=== PATIENT | male | born 1975 | race Two or more races ===

== ENCOUNTER 2024-06-13 12:56 | Emergency (ER) | payer BC, SELFPAY ==
[2024-06-13 13:00] VITALS: BP 173/106
[2024-06-13 13:03] LABS: Glucose - Point of Care > 600 mg/dl (70-99)
[2024-06-13 13:07] VITALS: BP 152/99
--- NOTE | 2024-06-13 13:09 | ED.GENMED ---
History of Present Illness
General
Chief Complaint: Blood Sugar Problem
Time Seen by Provider: 06/13/24 13:08
History of Present Illness
History of Present Illness:
TIME OF INITIAL ENCOUNTER: 1:15 PM
HPI: I reviewed: Note from Corazon Escobar indicating the patient presented to their office with increased urinary frequency, leg cramps, increased thirst and Accu-Chek was 598 and he had ketones in the urine. He states that he was in [place]
eating a lot of sweets at that time and still has yet to adjust to the time change and wonders if this is a contributing factor. Other than some resolved sore throat, he has no infectious symptoms.
EXAM:
GENERAL: Well appearing in no distress, elevated BMI
HEENT: Moist oral mucosa
CARDIOVASCULAR: No murmurs, normal heart rate, regular rhythm, No chest wall tenderness
PULMONARY: No respiratory distress, breath sounds are clear and equal
ABDOMEN: Soft with no peritoneal signs, no tenderness
NEUROLOGIC: Excellent strength all extremities, no coordination deficits
PSYCHIATRIC: Appropriate mental status, normal insight and judgement
EXTREMITIES: Nontender, no edema, moves all extremities equally
SKIN: No rash, no lesions
NUMBER AND COMPLEXITY OF PROBLEMS ADDRESSED AT THE ENCOUNTER
� Chronic conditions affecting care: High cholesterol, does not have history of high blood pressure
� Acute Exacerbation and/or Progression of Chronic Illness: This is an acute problem
� Differential Diagnosis includes: New onset diabetes, DKA, rhabdomyolysis, dehydration, hypertensive urgency, YOUSIF
AMOUNT AND/OR COMPLEXITY OF DATA TO BE REVIEWED AND ANALYZED
� I performed an independent evaluation of and my interpretation is:
EKG:
CT:
X-rays:
Laboratory Studies: CBC normal, venous blood gas shows a pH of 7.33, creatinine 1.3, CK 255
Other:
� Review of other/old records: The patient had a colonoscopy in 2020
� Clinical information was obtained by an independent historian: None needed
� Prescriptions/Medications Considered but not given: Considered additional agents such as glipizide however PMD gave recommendations as noted below
� Further testing considered but not performed:
RISK OF COMPLICATIONS AND/OR MORBIDITY OR MORTALITY OF PATIENT MANAGEMENT
� Social determinants of health affecting care: Lives at home, recently traveled to and from [place]
� Discussion with other providers: Discussed case with Dr. Norton and I also discussed with Dr. Escobar
� Escalation of care including admission/observation vs risk of discharge considered: Initial fingerstick was greater than 600. He was started on IV fluids. Overall, he is well-appearing.
ANY OTHER UPDATES:
3:00PM Dr. Norton agrees with outpatient management as the patient has virtually no symptoms currently. PMD recommended metformin 1000 mg twice daily which I have ordered. I also gave a paper prescription for glucometer with testing strips
and lancets.
Phy Exam
Physical Exam
Physical Exam:
See HPI
Course
Orders/Labs/Results
Orders:
Orders
06/13/24 13:08
0.9% Sodium Chloride 1000 ml [Nss] 1,000 ml IV BOLUS
06/13/24 13:14
Acetone [B-Hydroxybutyrate] Urgent
Complete Blood Count/With Diff Urgent
Comprehensive Metabolic Panel Urgent
Hemoglobin A1c [Glycohemoglobin (HgbA1c)] Urgent
Magnesium Urgent
Phosphorus Urgent
Total CK [Creatine Phosphokinase] Urgent
Venous Blood Gas Urgent
%Oxygen/Room Air: ra
06/13/24 13:53
Insulin Human Regular [Novolin R] 10 units IV NOW STA
Abnormal Lab Results
06/13/24 06/13/24 06/13/24
13:01 13:14 14:43
VBG pCO2 55 H mmHg
(35-48)
VBG HCO3 29.0 H mmol/L
(22-27)
Sodium 133 L mmol/L
(135-145)
Chloride 93 L mmol/L
(98-107)
Glucose 667 H* mg/dl
(70-99)
Hemoglobin A1c 12.0 H %
(4.0-5.6)
Creatine Kinase 255 H U/L
(55-170)
POC Glucose > 600 H* mg/dl 306 H mg/dl
(70-99) (70-99)
06/13/24 13:14
06/13/24 13:14
Vital Signs
Initial and Last Documented VS:
Initial Vital Signs
Temp Pulse Resp BP Pulse Ox
97.8 F 99 18 173/106 100
06/13/24 13:00 06/13/24 13:00 06/13/24 13:00 06/13/24 13:00 06/13/24 13:00
Last Documented Vital Signs
Temp Pulse Resp BP Pulse Ox
97.8 F 94 24 144/95 98
06/13/24 13:00 06/13/24 14:30 06/13/24 14:45 06/13/24 14:04 06/13/24 14:07
*Critical Care Note
Total Time (30-74mins, 75-104mins- exclusive of procedures): 40min
comment:
The patient's blood sugar is markedly elevated at over 600. Fortunately, he is not in DKA. He was given aggressive IV fluids initially and was treated emergently with 10 units of IV insulin. Repeat blood sugar markedly improved. He was closely
monitored throughout his stay in the emergency department.
ED Attending Note
-
Portions of this chart may have been created with voice recognition software.� Occasional wrong word or��sound alike� substitutions may have occurred due to the inherent limitations of voice recognition software.
Discharge Plan
Departure
Patient Disposition: Home (Routine Discharge)
Date of Disposition: 06/13/24
Time of Disposition: 15:15
Patient with high blood pressure during this ER visit?: Yes
Discharge Problem:
Diabetes
Instructions: Type 2 Diabetes (DC), BLOOD PRESSURE
Prescriptions:
New
metformin 1,000 mg tablet
1,000 mg PO BID Qty: 60 0RF
No Action
guaifenesin 100 mg/5 mL Liquid
200 mg PO Q4HPRN PRN (Reason: sore throat)
coenzyme Q10 [CoQ-10] 100 mg Capsule
100 mg PO DAILY
red yeast rice 600 mg Capsule
600 mg PO DAILY
Referrals:
UNKNOWN - PT DOES,NOT KNOW [Family Provider] -
Activity Restrictions/Additional Instructions:
Your A1c is 12.0�this is very high. You are not in diabetic ketoacidosis. I briefly spoke to a geological manager and then I also spoke to Dr. Escobar who recommends 1000 mg of metformin twice daily. It is important for you to check your blood
sugars before each meal and at nighttime.
Interventions
Interventions:
*Risk Screen - Suicide Last Done: 06/13/24 13:00
*General Assessment Last Done: 06/13/24 13:00
*Neglect/Abuse Screening Last Done: 06/13/24 13:00
*ED COVID-19 Vaccine History Last Done: 06/13/24 13:17
ED- Neurological Assessment Last Done: 06/13/24 13:19
Discharge Date and Time
Print Language: ZAMBIAN
[2024-06-13 13:17] VITALS: BMI 31.3
[2024-06-13] MEDS: NSS 1000 IV (13:17)
[2024-06-13 13:31] LABS: Venous Blood Gas B.E. 1.5 mmol/L (-4 to +4); Venous Blood Gas O2 Sat % 58.5 %; Venous Blood Gas pCO2 55 mmHg (35-48); Venous Blood Gas pH 7.33 (7.32-7.43); Venous Blood Gas pO2 30 mmHg (30-50)
[2024-06-13 13:32] LABS: % Basophils 0.5 % (0-2); % Eosinophils 1.3 % (0-6); % Immature Granulocytes 0.4 % (0-0.5); % Lymphocytes 40.7 % (20.5-51.1); % Monocytes 6.6 % (1.7-9.3); % Neutrophils 50.5 % (42.2-75.2); Absolute Eosinophils 0.1 10^3/uL (0-0.7); Absolute Lymphocytes 3.4 10^3/uL (1.2-3.4); Absolute Monocytes 0.6 10^3/uL (0.1-0.6); Absolute Neutrophils 4.2 10^3/uL (1.4-6.5); Hematocrit 46.8 % (39.0-52.0); Hemoglobin 16.1 g/dL (13.0-18.0); Mean Corp Hgb Conc. 34.4 g/dL (33.0-37.0); Mean Corpuscular Hgb 29.3 pg (27.0-31.0); Mean Corpuscular Volume 85.1 fL (80.0-94.0); Mean Platelet Volume 10.1 fL (7.4-10.4); Nucleated Red Blood Cells % 0.2 % (-); Platelet Count 274 10^3/uL (130-400); White Blood Cell Count 8.3 10^3/uL (4.8-10.8)
[2024-06-13 13:51] LABS: ALT (SGPT) 47 U/L (0-50); AST (SGOT) 35 U/L (17-59); Albumin 4.9 g/dl (3.5-5.0); Alkaline Phosphatase 95 U/L (38-126); Blood Urea Nitrogen 18 mg/dl (9-20); Calcium 9.6 mg/dl (8.4-10.2); Carbon Dioxide 26 mmol/L (22-30); Chloride 93 mmol/L (98-107); Creatine Phosphokinase 255 U/L (55-170); Estimated Creatinine Clearance 74 ml/min; Phosphorus 4.3 mg/dl (2.5-4.5); Potassium 4.6 mmol/L (3.5-5.1); Sodium 133 mmol/L (135-145); Total Bilirubin 0.6 mg/dl (0.2-1.3); Total Protein 7.9 g/dl (6.3-8.2); eGFR > 60.00
[2024-06-13 13:56] LABS: B-Hydroxybutyrate 0.19 mmol/L (0.02-0.27)
[2024-06-13] MEDS: NOVOLIN R 10 UNITS IV (14:01)
[2024-06-13 14:04] VITALS: BP 144/95
[2024-06-13 14:08] LABS: Glucose 667 mg/dl (70-99)
[2024-06-13 14:44] LABS: Glucose - Point of Care 306 mg/dl (70-99)
[2024-06-13 15:18] VITALS: BP 148/98
== END 2024-06-13 15:25 | disposition home or self-care (01) ==
LOC: EMR 12:56
PROVIDERS: EMERGENCY PHYSICIAN Emergency Medicine
DX: E11.65 Type 2 diabetes mellitus with hyperglycemia (principal); R03.0 Elevated blood-pressure reading, without diagnosis of hypertension
CPT/HCPCS: 99291; 96374; 80053; 82010; 82550; 82805; 82962; 83036; 83735; 84100; 85025

== ENCOUNTER → 2024-08-13 09:55 | Outpatient (REF) | payer BC, SELFPAY ==
--- NOTE | 2024-08-03 15:06 | PN.DIAED02 ---
Referral
DSME Class Series Code: [id number]
Referred For: Diabetes Self-Management Training, Medical Nutrition Therapy, Self-Blood Glucose Monitoring, Long-Term Complication Instruction, Accute Complication Instruction, Continuous Glucose Monitoring, Medication management, Care Coordination,
Disease Management
PHI Release Authorization Form Signed: Yes
Demographic
(1) Type 2 diabetes mellitus without complications
Status: Acute Onset Date: 06/13/24
Qualifiers:
Diabetes mellitus prison insulin use: without prison use Qualified Code(s): E11.9 - Type 2 diabetes mellitus without complications
Code(s): E11.9 - Type 2 diabetes mellitus without complications
Patient's primary language-: Kinyarwanda
Education: College degree
Occupation: Professional
Hours Worked/Week: > 40
- Social
Primary Support Person: Self
Primary Care Takers: Self
Living Arrangements: Self & spouse, Family
- Learning Methods
Preferred Method: Video
Barriers to Learning: None
Glycemic Control
- Blood Glucose Monitoring Assessment
Date: 06/13/24 (600 mg/dL)
Blood glucose monitoring at home: Yes ([employer] nayeli 3 )
Monitor Brands: Accu-Chek (Accu-Chek guide)
Time: Other (as needed to verify glucose sensor)
Patient instructed on Use and Limitation: No
- Hyperglycemia Assessment
Experiences Hyperglycemia: Yes (increased urination prior to diagnosis)
Hitory of DKA/HHS: No
- Hypoglycemia Assessment
Patient carries glucose source: No
- Blood Glucose Monitoring Results
Source: self-report
- Hemoglobin A1c
Date: 06/13/24
A1C Percentage (%): 12
Medical History of Diabetes
Family Diabetes History: Unknown
Previous Diabetes Education: No
Previous visit with Dietitian: No
Complications/Comorbidity/Specialist: Hyperlipidemia (borderline: started on a statin on diagnosis of diabetes)
Current Home Medication
- Insulin Management
Patient adjusts own insulin dosages: No (Metformin 500 mg daily)
Measures
- Anthropometrics
Height: 5 ft 7 in
Actual Weight: 188 lb 6.4 oz
- Blood Pressure / Pulse
Blood pressure: 130/85 (recc to reach out to addiction medicine physician)
Pulse: 90
- Diabetes Management
Medical Management for Diabetes: Complete physical exam (10/19/23), Dental exam (12/19/23), Dilated eye exam (02/08/24)
Self-Care
- Tobacco Usage
Do you now, or have you ever smoked?: Quit more than 1 year ago
- Alcohol & Drugs Usage
Drinks Alcohol: No
- Meals & Dining
Meals & Dining: Patient skips meals: No, Food Intolerance / Allergy: Yes (lactose), Cultural / Catholic Dietary Needs: No
Primary Food Miner: Self
Primary Quarry Manager: Self
- Physical Activity
Physical Limitation: No
Patient participates in physical Activity: Yes
Activity Types: walking
Duration: > 50 minutes
Frequency: 3-5x per week
- Self Foot-Care
Foot Problems: None
- Patient-Self Assessment
Diabetes Knowledge: Good
Feelings About Diabetes: Adaptation
General Health: Good
Importance of Health: Extremely
Stress Level: Medium
Diabetes Interferes With:: Nothing
Barriers to Diabetes Management: Nothing
Depression Survey Score: 2
- Diabetes Identification
Carries Diabetes Identification: No
Care Plan
- Education Needs
Patient Education Needs: Diabetes disease process, Chronic complications, Acute complications, Medication, Monitoring, Physical activity, Psychosocial Adjustment, Nutritional management, Goal setting & problem solving
Recommended Diabetes Training Program based on assessment: Outpatient Diabetes Education Program
- Plan of Care
Plan of Care:
Gianni was recently diagnosed in 06/24 with type 2 diabetes after having a routine physical that noted glucose in his urine and an elevated bg level in the office. He was sent to the ER and given 1 dose of rapid acting insulin, given an Accu-check
guide and started on Metformin 1,000 mg BID. He obtained the nayeli 3 glucose sensor and since has decreased his weight by 20 lbs through diet, exercise and taking the Metformin. His dose of Metformin was decreased by his PCP last week to 500 mg
daily. Gianni was encouraged to reach out to the office with any questions or concerns prior to the DSME session starting.
--- NOTE | 2024-08-03 15:21 | PN.DIAED04 ---
Education Record
- Education Record
Class Attended: Other (Initial Assessment DSME Course)
DSME Class Series Code: [id number]
Instructor: Nurse Practitioner (TING Klein)
Pre-Program Knowledge: Demonstrates competency
Pre-Test Score (%): 87.5
Goals
- Goal 1
Being Active: Exercise more often (increase intensity of 60 minute walks)
Goals To Be Evaluated: Exercise more often
- Goal 2
Healthy Eating: Patient will be able to plan a meal, Make better food choices
Goals To Be Evaluated: Be able to plan a meal. Make better food choices
- Goal 3
Monitoring: Monitor more often (review glucose sensor for patterns and increased time in range)
Goals To Be Evaluated: Monitor more often
--- NOTE | 2024-08-14 15:01 | PN.DIAED14 ---
This is to notify you that your patient with diabetes, PATIENCE FERRARA ( 1975), has enrolled in our diabetes self-management classes that are being held at [facility].
These classes will include an introduction to diabetes, diet, medication, exercise and prevention of complications. At the end of our class series, you will receive a report of your patient's participation and progress for your records.
Please contact me at the Diabetes [facility], , if there is any particular information regarding your patient that might be helpful to me.
Sincerely,
Khang MAGUIRE-, [facility]
--- NOTE | 2024-08-14 15:02 | PN.DIAED04 ---
Addendum entered and electronically signed by Zabrina Victor 08/15/24 12:00:
Outpatient Diabetes Education Program:
Class 1 (120 minutes)
Describe the diabetes disease process and treatment options
Diabetes management
Develop personal strategies to promote health and behavior change
Integrate psychosocial adjustment for daily living
Monitor blood glucose and other parameters. Interpret and use the results for self-management decision making
Prevent, detect, and treat acute complications
Original Note:
Education Record
- Education Record
Class Attended: Class 1
DSME Class Series Code: [id number]
Instructor: Nurse Practitioner (TING Klein)
Class Length (mins): 120
Post-Class 1 Test Score (%): 100
== END ==
LOC: DES 09:55
PROVIDERS: ATTENDING PHYSICIAN Emergency Medicine
DX: E11.65 Type 2 diabetes mellitus with hyperglycemia (principal)
CPT/HCPCS: 99078

== ENCOUNTER → 2024-08-20 13:58 | Outpatient (REF) | payer BC, SELFPAY | LOC: DES 13:58 | PROVIDERS: ATTENDING PHYSICIAN Emergency Medicine | DX: E11.65 Type 2 diabetes mellitus with hyperglycemia (principal) | CPT/HCPCS: 99078 ==

== ENCOUNTER → 2024-08-27 11:20 | Outpatient (REF) | payer BC, SELFPAY | LOC: DES 11:20 | PROVIDERS: ATTENDING PHYSICIAN Emergency Medicine | DX: E11.65 Type 2 diabetes mellitus with hyperglycemia (principal) | CPT/HCPCS: 99078 ==

== ENCOUNTER → 2024-09-03 08:38 | Outpatient (REF) | payer BC, SELFPAY ==
--- NOTE | 2024-09-04 10:37 | PN.DIAED04 ---
Education Record
- Education Record
Class Attended: Class 4
DSME Class Series Code: [id number]
Instructor: Nurse Practitioner (TING Klein)
Class Curriculum:
Outpatient Diabetes Education Program:
Class 4 (120 minutes)
Develop personal strategies to promote health and behavior change
Incorporate physical activity into lifestyle
Utilize medications safety for maximum therapeutic effectiveness
Understand different medication/insulin mechanism of action
Preparing for travel
Class Length (mins): 120
Post-Class 4 Test Score (%): 100
== END ==
LOC: DES 08:38
PROVIDERS: ATTENDING PHYSICIAN Emergency Medicine
DX: E11.65 Type 2 diabetes mellitus with hyperglycemia (principal)
CPT/HCPCS: 99078

== ENCOUNTER → 2024-09-10 13:06 | Outpatient (REF) | payer BC, SELFPAY ==
--- NOTE | 2024-09-12 12:12 | PN.DIAED16 ---
This is to notify you that your patient with diabetes, PATIENCE FERRARA ( 1975), has attended the entire series of Diabetes Self-Management Education Classes.
Class 1 (120 minutes): Diabetes Overview - monitoring, stress/psychosocial adjustment, support, goal setting
Class 2 (120 minutes): Meal Planning - serving sizes, menu plans
Class 3 (120 minutes): Introduction to Carbohydrate Counting, Analyzing Food Labels
Class 4 (120 minutes): Medication, Exercise and Activity
Class 5 (120 minutes): Sick Day Management, Strategies to Reduce Complications, Problem Solving, Resources
The following behavioral goals were identified:
Exercise more often
Be able to plan a meal
Make better food choices
Monitor more often
A follow-up call will be made within three to six months to evaluate attainment of these goals and to check post-program Hemoglobin A1c and overall progress. All class participants are encouraged to contact me if I can be any further assistance in
learning how to manage their diabetes.
Sincerely,
Khang MAGUIRE-, [facility]
== END ==
LOC: DES 13:06
PROVIDERS: ATTENDING PHYSICIAN Emergency Medicine
DX: E11.65 Type 2 diabetes mellitus with hyperglycemia (principal)
CPT/HCPCS: 99078